=== PATIENT | female | born 1985 | race Caucasian/White ===

== ENCOUNTER 2016-08-19 11:00 | Day surgery (SDC) | payer BC ==
[~2016-08-19 11:00] MED LIST: ACETAMINOPHEN500 MG PO; BACTRIM1 TAB PO; CEPHALEXIN500 MG PO; DOCUSATE SODIU250 MG PO; IBUPROFEN600 MG PO; NORCO1 TA1 PO; [UNRECOGNIZED DRUG - OTHER] PO
--- NOTE | 2016-08-19 14:55 | Provider's Discharge Care Plan ---
Problem, Goal, Plan Problem List 1. Anal fistula
--- NOTE | 2016-08-19 14:55 | Provider's Discharge Care Plan ---
Problem, Goal, Plan Problem List 1. Anal fistula
--- NOTE | 2016-08-19 15:23 | OPERATIVE REPORT ---
DATE OF SURGERY: 08/19/2016 SURGEON: Mazin De Dios MD PREOPERATIVE DIAGNOSIS: 1. Anal fistula POSTOPERATIVE DIAGNOSIS: 1. Anal fistula. PROCEDURE PERFORMED: 1. Plug repair of anal fistula ANESTHESIA: General. INDICATIONS: The patient is a 30-year-old woman with a complex perianal fistula treated with a seton. SURGICAL TECHNIQUE: The patient was taken to the operating room, where a general anesthetic was administered and the patient was placed in high lithotomy position. The seton was visualized. The seton was a vessel loop and it was partially untied and the tip of it tied to the end of the fistula brush. The brush was pulled into place and used to clean out the fistula tract which was also irrigated. The fistula plug was then drawn in from the rectal side toward the outside seating the button on the inside of the anal canal. This was sutured in 4 locations with 2-0 Vicryl. The excessive plug was trimmed away at the skin level. There was no ongoing bleeding. Note that some Marcaine with epinephrine was infiltrated for postoperative analgesia and the patient left in good condition. No intraoperative complications were encountered.
== END 2016-08-19 16:45 | disposition home or self-care (01) ==
LOC: OR SRH 11:00 → ACUTE3 SRH 11:04
PROVIDERS: Surgery
PROC: 0DBQ0ZZ Excision of Anus, Open Approach (ICD-10-PCS; principal; 2016-08-19 13:30)
DX: K60.3 Anal fistula (principal)